=== PATIENT | male | born 1960 | race Caucasian/White ===

== ENCOUNTER 2020-04-14 14:30 | Inpatient (IN) | payer MEDICARE, OTHER ==
[~2020-04-14] VITALS: Ht 165.1 cm; Wt 72.6 kg
[2020-04-14] MEDS ORDERED: MAGNESIUM HYDROXIDE 30 ML UDC PO PRN (15:00)
[2020-04-14] MEDS ORDERED: MAG HYDROX/AL HYDROX/SIMETH 30 ML UDC PO PRN (15:00)
[2020-04-14] MEDS ORDERED: BLOOD SUGAR DIAGNOSTIC 1 EACH STRIP IN ONE (15:00)
[2020-04-14] MEDS: LORAZEPAM 0.5 MG TABLET PO PRN (15:45)
--- NOTE | 2020-04-14 15:46 | NUR ---
RN-CO: ATIVAN 1 MG GIVEN FOR RESTLESSNESS.
--- NOTE | 2020-04-14 16:14 | NUR ---
RN-CO: Admitted a 60 year old white male from [facility] . Per hold, patient was defecating on the floor and walking with pants down. He mumbles and responds to internal stimuli. Upon face to face assessment he is alert to name only, disorganized and confused. He mumbles to himself and needs constant redirections. I gave him Ativan 1 mg for severe restlessness. Dr Diego was notified of the admission. Per patient's record his medical issues are unknown because he is a poor historian.
[2020-04-14 18:04] VITALS: BP 157/75
[2020-04-14 19:42] VITALS: BP 153/81
[2020-04-15] MEDS: CEPHALEXIN MONOHYDRATE 250 MG CAPSULE PO SCH ×4 (00:04→17:36)
--- NOTE | 2020-04-15 07:30 | NUR ---
RN-CO: Patient refused lab works. Enc 2x but still refused.
[2020-04-15 08:00] VITALS: BP 143/74
--- NOTE | 2020-04-15 09:57 | NUR ---
Initial Discharge Plan: Patient appeared to be homeless. This SW contacted [facility] ([phone]) and spoke with recepitionist Sravani who stated pt was at our [facility]. Pt will require a SNF as pt is homeless. This SW will work with the MD and treatment team to help coordinate proper discharge.
--- NOTE | 2020-04-15 09:57 | NUR ---
SW Family Contact: Pt does not have any family.
[2020-04-15] MEDS: LORAZEPAM 0.5 MG TABLET PO PRN ×2 (10:55→17:03)
--- NOTE | 2020-04-15 10:56 | NUR ---
RN-CO: ATIVAN PO 1 MG GIVEN FOR RESTLESSNESS.
[2020-04-15] MEDS ORDERED: HALOPERIDOL 5 MG TABLET PO SCH (14:00)
[2020-04-15] MEDS: HALOPERIDOL 5 MG TABLET PO SCH ×3 (14:14→21:19)
[2020-04-15] MEDS: TRIHEXYPHENIDYL HCL 2 MG TABLET PO SCH ×2 (14:33→17:36)
[2020-04-15 16:00] VITALS: BP 157/83
--- NOTE | 2020-04-15 17:06 | NUR ---
RN-CO: ATIVAN 1 MG PO GIVEN FOR RESTLESSNESS.
[2020-04-15 17:10] LABS: ALBUMIN 3.3 g/dL (3.4-5.0); BILIRUBIN,TOTAL 0.3 mg/dL (0.2-1.0); CALCIUM, SERUM 8.9 mg/dL (8.5-10.1); CREATININE 0.7 mg/dL (0.6-1.3); POTASSIUM 3.9 mmol/L (3.5-5.1); TOTAL PROTEIN, SERUM 7.1 g/dL (6.4-8.2)
[2020-04-15 17:26] LABS: THYROID STIMULATING HORMONE 2.74 uIU/mL (0.358-3.74)
--- NOTE | 2020-04-15 19:30 | NUR ---
GPS RN NOTE, RECEIVED PATIENT AWAKE AND IN BED, NO S/S OR COMPLAINTS OF PAIN AT THIS TIME. PATIENT IS DISPLAYING NO S/S OF APPARENT DISTRESS AT THIS TIME. PATIENT BREATHING IS UNLABORED WITH EQUAL RISE AND FALL OF THE CHEST. PATIENT IS ALERT AND ORIENTED X 1-2 ON ROOM AIR WITH A SPO2 97%. PATIENT IS COMPLIANT WITH MEDICATIONS, ANXIOUS AT TIMES, NEEDY, RESPONDING TO INTERNAL STIMULI, HYPERVERBAL, AWOL RISK AT TIMES, AND COOPERATIVE. PATIENT DENIES SUICIDAL AND HOMICIDAL IDEATIONS AT THIS TIME. PATIENT ASSISTED WITH TURNING AND REPOSITIONING Q2HR AND PRN FOR COMFORT AND CIRCULATION. PATIENT HAS NO NEEDS AT THIS TIME. PATIENT EDUCATED ON THE USE OF THE CALL MELLO. PATIENT BED SIDE RAILS UP X 2 FOR SAFETY. PATIENT BED IS LOCKED, LOW, WITH BED ALARM ON. WILL CONTINUE TO MONITOR THIS PATIENT Q15 MINUTES WITH THE HELP OF STAFF TO MAINTAIN SAFETY.
[2020-04-15 20:07] VITALS: BP 142/76
[2020-04-15] MEDS: DIVALPROEX SODIUM 125 MG CAP.SPRINK PO SCH (21:19)
[2020-04-16] MEDS: CEPHALEXIN MONOHYDRATE 250 MG CAPSULE PO SCH ×4 (00:09→17:07)
[2020-04-16] MEDS: TRIHEXYPHENIDYL HCL 2 MG TABLET PO SCH ×3 (07:44→17:07)
[2020-04-16] MEDS: HALOPERIDOL 5 MG TABLET PO SCH ×3 (08:18→21:22)
[2020-04-16] MEDS: MULTIPLE VIT (LYCOPENE/FA/MV,CA,IRON,MIN/LUT)1 TAB PO SCH (08:18)
[2020-04-16] MEDS: DIVALPROEX SODIUM 125 MG CAP.SPRINK PO SCH ×2 (08:18→21:00)
[2020-04-16] MEDS: THIAMINE HCL 100 MG TABLET PO SCH (08:18)
--- NOTE | 2020-04-16 08:38 | NUR ---
SW Substance Abuse Intervention: Patient was provided with a brief substance abuse intervention, however, pt refused intervention at this time and was uncooperative. This SW provided resources: [facility] ([phone]), [facility] ([phone]), and [facility] ([phone]).
[2020-04-16 10:01] VITALS: BP 108/54
[2020-04-16] MEDS: LORAZEPAM 0.5 MG TABLET PO PRN (13:04)
--- NOTE | 2020-04-16 13:07 | NUR ---
GPS RN NOTES PATIENT VERY RESTLESS AND ANXIOUS, PRN ATIVAN 1MG P.O. GIVEN AT 1304. WILL CONTINUE TO MONITOR PT.
[2020-04-16] MEDS: ACETAMINOPHEN 325 MG TABLET PO PRN (13:53)
--- NOTE | 2020-04-16 13:56 | NUR ---
RN NOTES PT FINALLY ABLE TO CONVINCE TO HAVE SHOWER. WHILE ASSISTING DURING SHOWERING, HE C/O PAIN ON HIS RLE CELLULITIS. PRN TYLENOL 650 MG P.O. GIVEN AT 1353. WILL CONTINUE TO MONITOR.
[2020-04-16 16:38] VITALS: BP 119/77
--- NOTE | 2020-04-16 19:30 | NUR ---
GPS RN NOTE, RECEIVED PATIENT AWAKE AND IN BED, NO S/S OR COMPLAINTS OF PAIN AT THIS TIME. PATIENT IS DISPLAYING NO S/S OF APPARENT DISTRESS AT THIS TIME. PATIENT BREATHING IS UNLABORED WITH EQUAL RISE AND FALL OF THE CHEST. PATIENT IS ALERT AND ORIENTED X 1-2 ON ROOM AIR WITH A SPO2 96%. PATIENT IS COMPLIANT WITH MEDICATIONS, ANXIOUS AT TIMES, NEEDY, RESPONDING TO INTERNAL STIMULI, HYPERVERBAL, AWOL RISK AT TIMES, AND COOPERATIVE. PATIENT DENIES SUICIDAL AND HOMICIDAL IDEATIONS AT THIS TIME. PATIENT ASSISTED WITH TURNING AND REPOSITIONING Q2HR AND PRN FOR COMFORT AND CIRCULATION. PATIENT HAS NO NEEDS AT THIS TIME. PATIENT EDUCATED ON THE USE OF THE CALL MELLO. PATIENT BED SIDE RAILS UP X 2 FOR SAFETY. PATIENT BED IS LOCKED, LOW, WITH BED ALARM ON. WILL CONTINUE TO MONITOR THIS PATIENT Q15 MINUTES WITH THE HELP OF STAFF TO MAINTAIN SAFETY.
[2020-04-16 19:56] VITALS: BP 104/57
--- NOTE | 2020-04-16 21:19 | NUR ---
GPS RN NOTE, PATIENT VITAL SIGNS ARE FOLLOWS B/P 104/57, PULSE 63, TEMP 98.3, RESPIRATIONS 18, AND SPO2 96%. PAGED DR SEVILLA AND INFORMED HIM OF MY FINDINGS. DR SEVILLA ORDERED TO HOLD PATIENT REFUSED DEPAKOTE SPRINKLE 250 MG PO Q12HR AND HALDOL 5 MG PO HS THIS PM. WILL ENCOURAGE FLUIDS AND I WILL CONTINUE TO MONITOR THIS PATIENT WITH THE HELP OF STAFF.
[2020-04-17 00:09] VITALS: BP 118/61
[2020-04-17] MEDS: ZOLPIDEM TARTRATE 5 MG TABLET PO PRN (00:13)
[2020-04-17] MEDS: CEPHALEXIN MONOHYDRATE 250 MG CAPSULE PO SCH ×2 (00:13→06:00)
--- NOTE | 2020-04-17 00:15 | NUR ---
GPS RN NOTE, PATIENT HAS A COMPLAINT OF NOT BEING ABLE TO SLEEP AND IS REQUESTING AMBIEN AT THIS TIME. PATIENT VITAL SIGNS ARE STABLE. GAVE AMBIEN 5MG PO HS PRN ORDERED. WILL REASSESS FOR INSOMNIA AND I WILL CONTINUE TO MONITOR THIS PATIENT.
[2020-04-17] MEDS: ACETAMINOPHEN 325 MG TABLET PO PRN (03:54)
[2020-04-17] MEDS: LORAZEPAM 0.5 MG TABLET PO PRN (03:54)
--- NOTE | 2020-04-17 03:54 | NUR ---
GPS RN NOTE, PATIENT HAS A COMPLAINT OF FEELING ANXIOUS AND IS REQUESTING ATIVAN AT THIS TIME. PATIENT VITAL SIGNS ARE STABLE. GAVE ATIVAN 1MG PO Q6HR PRN ORDERED. WILL REASSESS ANXIETY AND I WILL CONTINUE TO MONITOR THIS PATIENT.
--- NOTE | 2020-04-17 03:55 | NUR ---
GPS RN NOTE, PATIENT HAS A COMPLAINT OF A HEADACHE AT 2 OUT 10 ON THE PAIN SCALE AND IS REQUESTING TYLENOL AT THIS TIME. PATIENT VITAL SIGNS ARE STABLE. GAVE TYLENOL 650MG PO Q6HR PRN ORDERED. WILL REASSESS PAIN AND I WILL CONTINUE TO MONITOR THIS PATIENT.
--- NOTE | 2020-04-17 06:46 | NUR ---
GPS RN NOTE, PATIENT REFUSED KEFLEX 500 MG PO Q6HR ADRIA. OFFERED THREE TIMES AND STILL PATIENT REFUSED STATING, " NO NO NOT NOW " EDUCATED PATIENT ON THE RISKS AND BENEFITS OF TAKING AND REFUSING KEFLEX. WILL CONTINUE TO MONITOR THIS PATIENT.
[2020-04-17 08:00] VITALS: BP 117/68
[2020-04-17] MEDS: DIVALPROEX SODIUM 125 MG CAP.SPRINK PO SCH ×2 (08:28→21:29)
[2020-04-17] MEDS: HALOPERIDOL 5 MG TABLET PO SCH ×3 (08:28→23:06)
[2020-04-17] MEDS: TRIHEXYPHENIDYL HCL 2 MG TABLET PO SCH ×3 (08:28→17:14)
[2020-04-17] MEDS: MULTIPLE VIT (LYCOPENE/FA/MV,CA,IRON,MIN/LUT)1 TAB PO SCH (08:28)
[2020-04-17] MEDS: THIAMINE HCL 100 MG TABLET PO SCH (08:28)
[2020-04-17 12:00] VITALS: BP 144/55
[2020-04-17] MEDS: CEPHALEXIN MONOHYDRATE 500 MG CAPSULE PO SCH ×3 (12:23→23:32)
[2020-04-17 20:00] VITALS: BP 115/64
[2020-04-17 20:28] VITALS: BP 115/64
--- NOTE | 2020-04-18 00:40 | NUR ---
GPS RN NOTE PATIENT NOTED TO BE AWAKE & SLEEPING INTERMITTENTLY, EASILY AGITATED & HYPERVERBAL. OFFERED SLEEPING MEDICINE AMBIEN TO THE PT BUT PATIENT REFUSED X 3. NON COMPLAINT WITH CARE & MEDS AT TIMES, NON REDIRECTABLE AT TIMES, GAVE SPACE TO THE PATIENT TO CALM DOWN & CONTINUING TO MONITOR.
[2020-04-18] MEDS: LORAZEPAM 0.5 MG TABLET PO PRN ×2 (01:24→12:37)
--- NOTE | 2020-04-18 01:25 | NUR ---
GPS RN NOTE: ANXIETY PATIENT NOTED TO BE VERY ANXIOUS, AGITATED, KEEP POUNDING ON HIS BED, LOUD, HYPERVERBAL. PRN ATIVAN 1 MG PO GIVEN WILL CONTINUE TO MONITOR FOR ANY CHANGES.
[2020-04-18] MEDS: CEPHALEXIN MONOHYDRATE 500 MG CAPSULE PO SCH ×4 (05:17→23:52)
[2020-04-18 08:00] VITALS: BP 146/50
[2020-04-18] MEDS: HALOPERIDOL 5 MG TABLET PO SCH ×4 (08:22→21:27)
[2020-04-18] MEDS: TRIHEXYPHENIDYL HCL 2 MG TABLET PO SCH ×3 (08:22→17:58)
[2020-04-18] MEDS: MULTIPLE VIT (LYCOPENE/FA/MV,CA,IRON,MIN/LUT)1 TAB PO SCH (08:22)
[2020-04-18] MEDS: THIAMINE HCL 100 MG TABLET PO SCH (08:22)
[2020-04-18] MEDS: DIVALPROEX SODIUM 125 MG CAP.SPRINK PO SCH ×2 (08:22→21:27)
[2020-04-19] MEDS: CEPHALEXIN MONOHYDRATE 500 MG CAPSULE PO SCH ×3 (06:24→17:02)
[2020-04-19 08:00] VITALS: BP 135/71
[2020-04-19 08:16] LABS: ALBUMIN 3.3 g/dL (3.4-5.0); BILIRUBIN,TOTAL 0.3 mg/dL (0.2-1.0); CALCIUM, SERUM 9.3 mg/dL (8.5-10.1); CREATININE 0.7 mg/dL (0.6-1.3); POTASSIUM 4.7 mmol/L (3.5-5.1); TOTAL PROTEIN, SERUM 7.2 g/dL (6.4-8.2)
[2020-04-19] MEDS: HALOPERIDOL 5 MG TABLET PO SCH ×4 (08:52→21:11)
[2020-04-19] MEDS: DIVALPROEX SODIUM 125 MG CAP.SPRINK PO SCH ×2 (08:52→16:53)
[2020-04-19] MEDS: THIAMINE HCL 100 MG TABLET PO SCH (08:52)
[2020-04-19] MEDS: MULTIPLE VIT (LYCOPENE/FA/MV,CA,IRON,MIN/LUT)1 TAB PO SCH (08:52)
[2020-04-19] MEDS: TRIHEXYPHENIDYL HCL 2 MG TABLET PO SCH ×3 (08:52→17:02)
[2020-04-19 11:25] LABS: BASOPHILS # (AUTO) 0.1 /CMM (0.0-0.2); BASOPHILS % (AUTO) 1.1 % (0.0-2.0); EOSINOPHILS % (AUTO) 2.1 % (0.0-6.0); HEMATOCRIT 45 % (39-51); HEMOGLOBIN 14.7 g/dL (13.5-17.5); LYMPHOCYTES # (AUTO) 1.3 /CMM (0.8-4.8); LYMPHOCYTES % (AUTO) 20.7 % (20.0-44.0); MEAN CORPUSCULAR HGB CONC 33 g/dl (31.0-36.0); MEAN CORPUSCULAR VOLUME 90 fL (80-96); MONOCYTES # (AUTO) 0.4 /CMM (0.1-1.30); MONOCYTES % (AUTO) 5.6 % (2.0-12.0); NEUTROPHILS # (AUTO) 4.4 /CMM (1.8-8.9); NEUTROPHILS % (AUTO) 70.5 % (43.0-81.0); PLATELET COUNT (AUTO) 232 /CMM (150-450); RED BLOOD CELL COUNT(AUTO) 4.95 MIL/uL (4.5-6.0); WHITE BLOOD COUNT (AUTO) 6.3 K/uL (4.3-11.0)
[2020-04-19 16:03] VITALS: BP 129/80
[2020-04-19 20:26] VITALS: BP 116/58
[2020-04-19] MEDS: ZOLPIDEM TARTRATE 5 MG TABLET PO PRN (20:45)
[2020-04-19] MEDS: DIVALPROEX SODIUM 250 MG TABLET.DR PO SCH (20:45)
[2020-04-20] MEDS: CEPHALEXIN MONOHYDRATE 500 MG CAPSULE PO SCH ×4 (00:45→17:24)
[2020-04-20 08:00] VITALS: BP 121/71
[2020-04-20] MEDS: THIAMINE HCL 100 MG TABLET PO SCH (08:31)
[2020-04-20] MEDS: DIVALPROEX SODIUM 125 MG CAP.SPRINK PO SCH (08:33)
[2020-04-20] MEDS: HALOPERIDOL 5 MG TABLET PO SCH ×4 (08:33→21:13)
[2020-04-20] MEDS: MULTIPLE VIT (LYCOPENE/FA/MV,CA,IRON,MIN/LUT)1 TAB PO SCH (08:33)
[2020-04-20] MEDS: TRIHEXYPHENIDYL HCL 2 MG TABLET PO SCH ×3 (08:33→17:24)
--- NOTE | 2020-04-20 09:56 | NUR ---
WOUND CARE CONSULT: PT PRESENTS WITH SLIGHTLY RAISED AREA OF DRY SCAB TO RT CALF AND SLIGHTLY RED CIRCULAR AREA OF SKIN TO LEFT THIGH, PRESENT ON ADMISSION. PT DENIES TENDERNESS. NO DRAINAGE NOTED. PT IS ON KEFLEX AT THIS TIME. PER RN, AREAS ARE IMPROVING. PT IS AMBULATORY AND CONTINENT. WILL SEE PRN.
[2020-04-20 16:00] VITALS: BP 138/70
[2020-04-20] MEDS: DIVALPROEX SODIUM 250 MG TABLET.DR PO SCH ×2 (17:24→20:29)
[2020-04-20 20:44] VITALS: BP 128/64
[2020-04-20] MEDS: ZOLPIDEM TARTRATE 5 MG TABLET PO PRN (21:13)
[2020-04-21] MEDS: CEPHALEXIN MONOHYDRATE 500 MG CAPSULE PO SCH ×4 (06:01→17:23)
[2020-04-21 08:00] VITALS: BP 150/88
[2020-04-21] MEDS: HALOPERIDOL 5 MG TABLET PO SCH ×4 (08:28→22:04)
[2020-04-21] MEDS: MULTIPLE VIT (LYCOPENE/FA/MV,CA,IRON,MIN/LUT)1 TAB PO SCH (08:29)
[2020-04-21] MEDS: DIVALPROEX SODIUM 250 MG TABLET.DR PO SCH ×3 (08:29→20:45)
[2020-04-21] MEDS: TRIHEXYPHENIDYL HCL 2 MG TABLET PO SCH ×3 (08:29→17:23)
[2020-04-21] MEDS: THIAMINE HCL 100 MG TABLET PO SCH (08:29)
[2020-04-21] MEDS: LORAZEPAM 0.5 MG TABLET PO PRN ×2 (16:16→19:31)
[2020-04-21 16:24] VITALS: BP 141/79
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
[2020-04-21 20:24] VITALS: BP 152/94
[2020-04-22] MEDS: CEPHALEXIN MONOHYDRATE 500 MG CAPSULE PO SCH ×4 (00:09→17:06)
[2020-04-22 08:00] VITALS: BP 150/92
[2020-04-22] MEDS: TRIHEXYPHENIDYL HCL 2 MG TABLET PO SCH ×3 (08:00→17:06)
[2020-04-22] MEDS: MULTIPLE VIT (LYCOPENE/FA/MV,CA,IRON,MIN/LUT)1 TAB PO SCH (09:12)
[2020-04-22] MEDS: THIAMINE HCL 100 MG TABLET PO SCH (09:12)
[2020-04-22] MEDS: LORAZEPAM 0.5 MG TABLET PO PRN (09:13)
[2020-04-22] MEDS: HALOPERIDOL 5 MG TABLET PO SCH ×4 (09:13→21:28)
[2020-04-22] MEDS: DIVALPROEX SODIUM 250 MG TABLET.DR PO SCH ×3 (09:13→21:29)
--- NOTE | 2020-04-22 09:20 | NUR ---
RN-CO: ATIVAN GIVEN FOR UNPREDICTABLE BEHAVIOR.
--- NOTE | 2020-04-22 10:35 | NUR ---
SNF Referral: SW faxed a referral to [facility] ([facility]) with attention to Selvin and CJ to the fax number: [phone].
[2020-04-22] MEDS: ACETAMINOPHEN 325 MG TABLET PO PRN (13:43)
[2020-04-22] MEDS ORDERED: HALOPERIDOL DECANOATE IM 100 MG/ML AMPUL IM SCH (15:00)
--- NOTE | 2020-04-22 15:34 | NUR ---
RN-CO: HALDOL DECANOATE 100 MG IM GIVEN ON LEFT UPPER BUTTOCK AREA. TOLERATED WELL.
[2020-04-22 16:00] VITALS: BP 110/64
--- NOTE | 2020-04-22 19:30 | NUR ---
GPS RN NOTE, RECEIVED PATIENT AWAKE AND IN BED, NO S/S OR COMPLAINTS OF PAIN AT THIS TIME. PATIENT IS DISPLAYING NO S/S OF APPARENT DISTRESS AT THIS TIME. PATIENT BREATHING IS UNLABORED WITH EQUAL RISE AND FALL OF THE CHEST. PATIENT IS ALERT AND ORIENTED X 1-2 ON ROOM AIR WITH A SPO2 98%. PATIENT IS COMPLIANT WITH MEDICATIONS, ANXIOUS AT TIMES, NEEDY, RESPONDING TO INTERNAL STIMULI, HYPERVERBAL, AWOL RISK AT TIMES, NEEDS CONSTANT REDIRECTION, AND COOPERATIVE. PATIENT DENIES SUICIDAL AND HOMICIDAL IDEATIONS AT THIS TIME. PATIENT ASSISTED WITH TURNING AND REPOSITIONING Q2HR AND PRN FOR COMFORT AND CIRCULATION. PATIENT HAS NO NEEDS AT THIS TIME. PATIENT EDUCATED ON THE USE OF THE CALL MELLO. PATIENT BED SIDE RAILS UP X 2 FOR SAFETY. PATIENT BED IS LOCKED, LOW, WITH BED ALARM ON. WILL CONTINUE TO MONITOR THIS PATIENT Q15 MINUTES WITH THE HELP OF STAFF TO MAINTAIN SAFETY.
[2020-04-22 19:45] VITALS: BP 115/71
[2020-04-23] MEDS: CEPHALEXIN MONOHYDRATE 500 MG CAPSULE PO SCH ×5 (00:07→23:04)
[2020-04-23 08:00] VITALS: BP 150/75
[2020-04-23] MEDS: MULTIPLE VIT (LYCOPENE/FA/MV,CA,IRON,MIN/LUT)1 TAB PO SCH (08:04)
[2020-04-23] MEDS: TRIHEXYPHENIDYL HCL 2 MG TABLET PO SCH ×3 (08:04→17:27)
[2020-04-23] MEDS: DIVALPROEX SODIUM 250 MG TABLET.DR PO SCH ×2 (08:04→21:44)
[2020-04-23] MEDS: HALOPERIDOL 5 MG TABLET PO SCH ×4 (08:04→21:44)
[2020-04-23] MEDS: THIAMINE HCL 100 MG TABLET PO SCH (08:04)
--- NOTE | 2020-04-23 09:00 | NUR ---
RN NOTE- PT IS ALERT ORIENTED TO PERSON, SLURRED SPEECH PACIN Edu HALLS FOCUS ON COFFEE AND PT HAS HYPERGRAPHIA/WRITING ON TRASH BAGS AND ANYTHING HE CAN FIND, CONFUSED DISORGANIZED PO INTAKE GOOD MED COMPLIANT
[2020-04-23] MEDS ORDERED: DIVALPROEX SODIUM 250 MG TABLET.DR PO STA (09:33)
--- NOTE | 2020-04-23 12:37 | NUR ---
SNF Contact: ANITA ([phone]) from [facility] contacted the SW and stated that the pt was accepted to their facility.
[2020-04-23 16:00] VITALS: BP 123/63
--- NOTE | 2020-04-23 19:30 | NUR ---
GPS RN NOTE, RECEIVED PATIENT AWAKE AND IN BED, NO S/S OR COMPLAINTS OF PAIN AT THIS TIME. PATIENT IS DISPLAYING NO S/S OF APPARENT DISTRESS AT THIS TIME. PATIENT BREATHING IS UNLABORED WITH EQUAL RISE AND FALL OF THE CHEST. PATIENT IS ALERT AND ORIENTED X 1-2 ON ROOM AIR WITH A SPO2 97%. PATIENT IS COMPLIANT WITH MEDICATIONS, ANXIOUS AT TIMES, NEEDY, RESPONDING TO INTERNAL STIMULI, HYPERVERBAL, AWOL RISK AT TIMES, NEEDS CONSTANT REDIRECTION, AND COOPERATIVE. PATIENT DENIES SUICIDAL AND HOMICIDAL IDEATIONS AT THIS TIME. PATIENT ASSISTED WITH TURNING AND REPOSITIONING Q2HR AND PRN FOR COMFORT AND CIRCULATION. PATIENT HAS NO NEEDS AT THIS TIME. PATIENT EDUCATED ON THE USE OF THE CALL EMLLO. PATIENT BED SIDE RAILS UP X 2 FOR SAFETY. PATIENT BED IS LOCKED, LOW, WITH BED ALARM ON. WILL CONTINUE TO MONITOR THIS PATIENT Q15 MINUTES WITH THE HELP OF STAFF TO MAINTAIN SAFETY.
[2020-04-23 20:00] VITALS: BP 143/84
[2020-04-23] MEDS: ACETAMINOPHEN 325 MG TABLET PO PRN (22:32)
--- NOTE | 2020-04-23 22:32 | NUR ---
GPS RN NOTE, PATIENT HAS A COMPLAINT OF HEAD ACHE AT 2 OUT 10 ON THE PAIN SCALE AND IS REQUESTING TYLENOL AT THIS TIME. PATIENT VITAL SIGNS ARE STABLE. GAVE TYLENOL 650MG PO Q6HR PRN ORDERED. WILL REASSESS PAIN AND I WILL CONTINUE TO MONITOR THIS PATIENT.
[2020-04-24] MEDS: CEPHALEXIN MONOHYDRATE 500 MG CAPSULE PO SCH ×3 (05:15→17:06)
[2020-04-24 07:35] LABS: BASOPHILS % (AUTO) 0.4 % (0.0-2.0); EOSINOPHILS % (AUTO) 1.4 % (0.0-6.0); HEMATOCRIT 44 % (39-51); HEMOGLOBIN 14.7 g/dL (13.5-17.5); LYMPHOCYTES # (AUTO) 1.3 /CMM (0.8-4.8); LYMPHOCYTES % (AUTO) 28.9 % (20.0-44.0); MEAN CORPUSCULAR HGB CONC 33 g/dl (31.0-36.0); MEAN CORPUSCULAR VOLUME 90 fL (80-96); MONOCYTES # (AUTO) 0.2 /CMM (0.1-1.30); MONOCYTES % (AUTO) 4.9 % (2.0-12.0); NEUTROPHILS # (AUTO) 2.8 /CMM (1.8-8.9); NEUTROPHILS % (AUTO) 64.4 % (43.0-81.0); PLATELET COUNT (AUTO) 219 /CMM (150-450); RED BLOOD CELL COUNT(AUTO) 4.95 MIL/uL (4.5-6.0); WHITE BLOOD COUNT (AUTO) 4.4 K/uL (4.3-11.0)
[2020-04-24 08:00] VITALS: BP 138/76
[2020-04-24] MEDS: TRIHEXYPHENIDYL HCL 2 MG TABLET PO SCH ×3 (08:14→17:06)
[2020-04-24] MEDS: MULTIPLE VIT (LYCOPENE/FA/MV,CA,IRON,MIN/LUT)1 TAB PO SCH (08:14)
[2020-04-24] MEDS: THIAMINE HCL 100 MG TABLET PO SCH (08:14)
[2020-04-24] MEDS: HALOPERIDOL 5 MG TABLET PO SCH ×4 (08:15→21:30)
[2020-04-24] MEDS: DIVALPROEX SODIUM 250 MG TABLET.DR PO SCH ×2 (08:36→21:30)
[2020-04-24] MEDS: LORAZEPAM 0.5 MG TABLET PO PRN (10:46)
[2020-04-24 10:47] LABS: ALBUMIN 3.5 g/dL (3.4-5.0); BILIRUBIN,TOTAL 0.3 mg/dL (0.2-1.0); CALCIUM, SERUM 9.3 mg/dL (8.5-10.1); POTASSIUM 4.6 mmol/L (3.5-5.1); TOTAL PROTEIN, SERUM 7.3 g/dL (6.4-8.2)
[2020-04-24 16:00] VITALS: BP 159/69
[2020-04-24 17:25] LABS: CREATININE 0.8 mg/dL (0.6-1.3)
[2020-04-24] MEDS: ACETAMINOPHEN 325 MG TABLET PO PRN (19:45)
[2020-04-24 19:50] VITALS: BP 121/58
[2020-04-25] MEDS: CEPHALEXIN MONOHYDRATE 500 MG CAPSULE PO SCH ×5 (00:18→23:19)
[2020-04-25] MEDS: LORAZEPAM 0.5 MG TABLET PO PRN (01:58)
--- NOTE | 2020-04-25 01:58 | NUR ---
GPS RN NOTE, PATIENT HAS A COMPLAINT OF FEELING ANXIOUS AND IS REQUESTING ATIVAN AT THIS TIME. PATIENT VITAL SIGNS ARE STABLE. GAVE ATIVAN 1 MG PO Q6HR PRN ORDERED. WILL REASSESS FOR ANXIETY AND I WILL CONTINUE TO MONITOR THIS PATIENT.
[2020-04-25 08:00] VITALS: BP 151/80
[2020-04-25] MEDS: TRIHEXYPHENIDYL HCL 2 MG TABLET PO SCH ×3 (08:00→17:50)
[2020-04-25] MEDS: HALOPERIDOL 5 MG TABLET PO SCH ×4 (09:11→21:09)
[2020-04-25] MEDS: THIAMINE HCL 100 MG TABLET PO SCH (09:11)
[2020-04-25] MEDS: MULTIPLE VIT (LYCOPENE/FA/MV,CA,IRON,MIN/LUT)1 TAB PO SCH (09:11)
[2020-04-25] MEDS: DIVALPROEX SODIUM 250 MG TABLET.DR PO SCH ×2 (09:11→21:09)
[2020-04-25 16:00] VITALS: BP 119/72
[2020-04-25 22:17] VITALS: BP 143/80
[2020-04-26] MEDS: CEPHALEXIN MONOHYDRATE 500 MG CAPSULE PO SCH ×4 (05:20→23:41)
[2020-04-26] MEDS: THIAMINE HCL 100 MG TABLET PO SCH (08:14)
[2020-04-26] MEDS: MULTIPLE VIT (LYCOPENE/FA/MV,CA,IRON,MIN/LUT)1 TAB PO SCH (08:14)
[2020-04-26] MEDS: HALOPERIDOL 5 MG TABLET PO SCH ×4 (08:14→21:27)
[2020-04-26] MEDS: TRIHEXYPHENIDYL HCL 2 MG TABLET PO SCH ×3 (08:14→17:50)
[2020-04-26] MEDS: DIVALPROEX SODIUM 250 MG TABLET.DR PO SCH ×2 (08:14→21:27)
--- NOTE | 2020-04-26 09:00 | NUR ---
RN NOTE- PT IS BETTER. MORE FOCUSED AND INTERACTIVE. MORE APPROPRIATE ALERT ORIENTED TO PERSON, SLURRED SPEECH FOCUS ON COFFEE AND PO INTAKE GOOD MED COMPLIANT
[2020-04-26 09:26] VITALS: BP 138/88
--- NOTE | 2020-04-26 11:29 | NUR ---
Individual Intervention: SW informed the pt that she wanted to discuss the pts discharge plan with him. He stated that he does not have anywhere to go and SW stated that he was accepted to a nursing facility called [facility]. SW asked the pt to speak about what having placement means for him and the pt stated that he just did not want to be placed in the streets.
[2020-04-26 16:17] VITALS: BP 133/74
[2020-04-26 20:03] VITALS: BP 152/73
[2020-04-27] MEDS: CEPHALEXIN MONOHYDRATE 500 MG CAPSULE PO SCH ×3 (06:59→18:06)
[2020-04-27 08:00] VITALS: BP 145/78
[2020-04-27] MEDS: TRIHEXYPHENIDYL HCL 2 MG TABLET PO SCH ×3 (08:06→18:06)
[2020-04-27] MEDS: HALOPERIDOL 5 MG TABLET PO SCH ×4 (08:58→21:38)
[2020-04-27] MEDS: THIAMINE HCL 100 MG TABLET PO SCH (08:58)
[2020-04-27] MEDS: MULTIPLE VIT (LYCOPENE/FA/MV,CA,IRON,MIN/LUT)1 TAB PO SCH (08:58)
[2020-04-27] MEDS: DIVALPROEX SODIUM 250 MG TABLET.DR PO SCH ×2 (08:58→21:38)
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
[2020-04-27 16:00] VITALS: BP 127/77
[2020-04-27] MEDS: ACETAMINOPHEN 325 MG TABLET PO PRN (18:05)
--- NOTE | 2020-04-27 18:05 | NUR ---
RN NOTE- C/O HEADACHE. TYLENOL 650 MG GIVEN
[2020-04-27 20:37] VITALS: BP 143/70
[2020-04-28] MEDS: CEPHALEXIN MONOHYDRATE 500 MG CAPSULE PO SCH ×2 (06:19)
[2020-04-28 08:00] VITALS: BP 134/73
[2020-04-28] MEDS: TRIHEXYPHENIDYL HCL 2 MG TABLET PO SCH ×2 (08:22→12:05)
[2020-04-28] MEDS: THIAMINE HCL 100 MG TABLET PO SCH (08:23)
[2020-04-28] MEDS: HALOPERIDOL 5 MG TABLET PO SCH ×2 (08:23→12:05)
[2020-04-28] MEDS: DIVALPROEX SODIUM 250 MG TABLET.DR PO SCH (08:23)
[2020-04-28] MEDS: MULTIPLE VIT (LYCOPENE/FA/MV,CA,IRON,MIN/LUT)1 TAB PO SCH (08:23)
--- NOTE | 2020-04-28 08:59 | NUR ---
Discharge Note: Pt will be discharged to [facility] ([facility]) located at [address] [place] [id number]; ([phone]). Pt will be transported via [facility] (Trip #[id number]) at 11AM. There was no one to notify to about the pts discharge. Upon discharge, the pt appears to be in a dysphoric mood and presented with a congruent affect. Pt appears to be alert and oriented x4 (time, place, self and situation). Pt denies both suicidal and homicidal ideation as well as auditory and visual hallucinations. Pt appears to be ambulatory with a steady gait. Pt appears to be disheveled and malodorous. Due to the pt being homeless, pt was provided with resources including shelters, food khoury, showers, hot meals, mental health clinics, health clinics and substance abuse referrals. SW provided patient with the [phone] [facility] list. SW provided patient with a copy of the [facility] homeless directory which provides information on locations for hot meals, sack lunches, food pantries, and showers. AYDEN provided an additional list of mental health clinics: [facility] [address] [place] [address] ([phone]); [facility] [address] [place] [address] ([phone]); a list of medical clinics; [facility] [address], [place]. [place], ; [facility] [address], [address], [place]. AYDEN Provided [facility] [address] [place] [address]: ([phone]). Patient was provided with a brief substance abuse intervention and referred to the following substance abuse programs: [facility] Substance Abuse Self-helpline ([phone]); [facility] [address] [place] [address] ([phone]); [facility] [address] [facility] [address] ([phone]); [facility] ([phone]); [facility] ([phone]); [facility] ([phone]); [facility] ([phone]). Pt will continue to be under the care of psychiatrist, Dr. Diego, located at [address] [facility] [address]; . Pt will be under the care of exterior designer, Dr. Delvalle, located at [address] [place] [address]; . The homeless waiver, choice of vendor form, and multidisciplinary exit care form were done, printed, signed, and given to the patient.
--- NOTE | 2020-04-28 10:22 | NUR ---
RN-CO: DR GU GAVE AN ORDER TO DISCONTINUE HOLD AND DISCHARGE PATIENT TO SNF,NOTED. PATIENT IS CALM AND COOPERATIVE TO CARE. DENIED ANY DISCOMFORTS. HE DENIED SUICIDAL AND HOMICIDAL IDEATIONS. DENIED AUDITORY AND VISUAL HALLUCINATIONS. REFUSED TO CHECK IS SKIN HE STATED " I'M OK, MY SKIN IS FINE." HE IS AWARE OF HIS DISCHARGE. I DISCUSSED TO HIM HIS DISCHARGE AND VERBALIZED UNDERSTANDING. DR JOHANSEN MEDICALLY CLEARED HIM FOR DISCHARGE.
--- NOTE | 2020-04-28 10:46 | NUR ---
RN-CO: REPORT WAS GIVEN TO "KAREY" LORIE IN [facility].
--- NOTE | 2020-04-28 14:49 | NUR ---
RN-CO: PT WAS PICKED UP BY AMBULANCE , REPORT GIVEN.
== END 2020-04-28 14:30 | DRG 885 ==
LOC: GPS 14:38
PROVIDERS: ADMIT Psychiatry & Neurology Psychiatry
DX: F25.0 Schizoaffective disorder, bipolar type (principal); L03.114 Cellulitis of left upper limb; L03.113 Cellulitis of right upper limb; E44.0 Moderate protein-calorie malnutrition; F19.10 Other psychoactive substance abuse, uncomplicated; Z73.6 Limitation of activities due to disability; Z72.0 Tobacco use; F29 Unspecified psychosis not due to a substance or known physiological condition; G31.84 Mild cognitive impairment of uncertain or unknown etiology; Z79.899 Other long term (current) drug therapy; Z91.19 Patient's noncompliance with other medical treatment and regimen
CPT/HCPCS: 36415; 80053-TC; 80061-TC; 80164-TC; 84443-TC; 85025-TC; 87081-TC; J1631